=== PATIENT | female | born 1950 | race Asian ===

== ENCOUNTER 2017-09-26 12:39 | Emergency (ER) | payer MEDICARE ==
[~2017-09-26] VITALS: Ht 162.6 cm; Wt 67.0 kg
[2017-09-26] MEDS ORDERED: ONDANSETRON ODT 4 MG PO ONE (13:00)
[2017-09-26] MEDS ORDERED: ONDANSETRON ODT 4 MG ONE (15:15)
[2017-09-26] MEDS ORDERED: ACETAMINOPHEN 500 MG TABLET ONE (15:15)
[2017-09-26 15:20] VITALS: BP 126/76
[2017-09-26] MEDS ORDERED: ACETAMINOPHEN 325 MG TABLET PO ONE (15:30)
== END 2017-09-26 15:31 | disposition home or self-care (01) ==
LOC: ED 15:20
DX: S06.0X1A Concussion with loss of consciousness of 30 minutes or less, initial encounter (principal); S83.92XA Sprain of unspecified site of left knee, initial encounter; W18.39XA Other fall on same level, initial encounter; Y93.89 Activity, other specified; Y92.488 Other paved roadways as the place of occurrence of the external cause; Y99.8 Other external cause status
CPT/HCPCS: 70450; 99284; Q0162